=== PATIENT | female | born 1965 | race Caucasian/White ===

== ENCOUNTER 2016-10-09 16:51 | Emergency (ER) | payer OTHER ==
[~2016-10-09] VITALS: Ht 180.3 cm; Wt 80.7 kg
[2016-10-09] MEDS ORDERED: TRAMADOL HCL50 MG PO (17:15)
[2016-10-09] MEDS ORDERED: NORTRIPTYLINE H10 MG PO (17:16)
[2016-10-09] MEDS ORDERED: LAMICTAL100 MG PO (17:16)
[2016-10-09] MEDS ORDERED: OXYCODONE HCL5 MG PO (17:35)
== END 2016-10-09 17:42 | disposition home or self-care (01) ==
LOC: ED 16:51
DX: M54.12 Radiculopathy, cervical region (principal); Z88.5 Allergy status to narcotic agent; Z79.899 Other long term (current) drug therapy; Z98.890 Other specified postprocedural states
CPT/HCPCS: 99283